=== PATIENT | male | born 1935 | race Caucasian/White ===

== ENCOUNTER 2016-07-04 20:33 | Emergency (ER) | payer OTHER ==
[~2016-07-04] VITALS: Ht 165.1 cm; Wt 80.0 kg
[~2016-07-04 20:33] MED LIST: ATOR40TA16 PO; DIVA250ER PO; ZANT150T2 PO
[2016-07-04 20:36] VITALS: BP 208/89; PULSE 86; RESP 16; TEMP 100.8; O2SAT 95
[2016-09-06] MEDS ORDERED: METO25TA3 PO (11:01)
[2016-10-23] MEDS ORDERED: DIVA250ER PO (12:27)
== END 2016-07-04 23:11 | disposition left against medical advice (07) ==
LOC: NED 20:33
DX: R41.82 Altered mental status, unspecified (principal)
CPT/HCPCS: 99281

== ENCOUNTER 2016-07-05 18:24 | Emergency (ER) | payer MEDICARE, OTHER ==
[~2016-07-05] VITALS: Ht 165.1 cm; Wt 85.0 kg
[2016-07-05 18:28] VITALS: BP 156/68; PULSE 81; RESP 14; TEMP 98; O2SAT 97
[2016-07-05 23:33] VITALS: BP 161/75; PULSE 90; RESP 20; O2SAT 97
[2016-07-06 00:18] LABS: AUTOMATED NEUTROPHIL # 4.6 TH/MM3 (1.8-7.7); BASOPHIL % 0.7 % (0.0-2.0); EOSINOPHIL % 0.4 % (0.0-4.0); HEMATOCRIT 43.4 % (39.0-51.0); HEMO FLAGS DIFF FINAL; LYMPH % 18.2 % (9.0-44.0); LYMPHOCYTE # 1.2 TH/MM3 (1.0-4.8); MEAN CELL VOLUME 85.9 FL (80.0-100.0); MEAN CORPUSCULAR HEMOGLOBIN 28.2 PG (27.0-34.0); MEAN CORPUSCULAR HGB CONC 32.8 % (32.0-36.0); MONO % 11.2 % (0.0-8.0); NEUT % 69.5 % (16.0-70.0); PLATELET COUNT 122 TH/MM3 (150-450); RED BLOOD COUNT 5.05 MIL/MM3 (4.50-5.90); RED CELL DISTRIBUTION WIDTH 14.7 % (11.6-17.2); WHITE BLOOD COUNT 6.6 TH/MM3 (4.0-11.0)
[2016-07-06 00:42] LABS: BICARBONATE 29.5 MEQ/L (21.0-32.0); POTASSIUM 3.6 MEQ/L (3.5-5.1)
[2016-07-06 01:11] LABS: BLOOD, URINE SMALL (NEG); COMMENT (UR) CATH-CULT NOT IND; CULTURE IF INDICATED CATH CULTURE NOT IND; GLUCOSE,URINE NEG (NEG); HYALINE CAST, URINE 1 /lpf (RARE); KETONE, URINE NEG (NEG); MUCUS URINE FEW /lpf (OCC); NITRITE,URINE NEG (NEG); RENAL EPITHELIAL CELLS <1 /hpf; URINE COLOR YELLOW (YELLW/STRAW)
[2016-07-06] MEDS ORDERED: SODIUM CHLOR 0.9% 1000 ML INJ 1,000 ML IV ONE (01:15)
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
--- NOTE | 2016-07-06 08:37 | EKG ---
Date Performed: 07/06/2016 Time Performed: 00:11:58 PTAGE: 81 years EKG: Sinus rhythm NORMAL ECG NO PREVIOUS TRACING DOCTOR: Hoang Galdamez Interpretating Date/Time 07/06/2016 08:34:27
[2016-09-06] MEDS ORDERED: METO25TA3 PO (11:01)
[2016-10-23] MEDS ORDERED: DIVA250ER PO (12:27)
== END 2016-07-06 02:52 | disposition home or self-care (01) ==
LOC: NEPC 18:24
DX: E86.0 Dehydration (principal); Z87.820 Personal history of traumatic brain injury; I10 Essential (primary) hypertension
CPT/HCPCS: 80048; 81001; 85025; 93005; 99284; J7030